=== PATIENT | female | born 1980 | race Caucasian/White ===

== ENCOUNTER 2021-12-06 18:03 | Emergency (ER) | payer OTHER, SELFPAY ==
[2021-12-06 18:04] VITALS: BP 134/79; PULSE 89; RESP 15; TEMP 36.3; O2SAT 99; BMI 40.9
== END 2021-12-06 19:01 | disposition left against medical advice (07) ==
LOC: ED 19:04
DX: R10.9 Unspecified abdominal pain (principal)

== ENCOUNTER 2023-09-12 09:14 | Emergency (ER) | payer MEDICAID, SELFPAY ==
[2023-09-12 09:15] VITALS: BP 142/95; PULSE 91; RESP 14; TEMP 36.1; O2SAT 98; BMI 42.3
--- NOTE | 2023-09-12 10:01 | EDS_ITS ---
HPI HPI - Female History of Present Illness Chief Complaint: Vag Bleeding Informant: patient Narrative Narrative: 43-year-old female with what feels like an extremely bad menstrual cycle, but she has been irregular for the last 1 or 2 years, her family doctor told her she was probably perimenopausal, this is the first cycle she has had in 3 months, which is how it has been for the last year or so, this 1 started the day before yesterday but now the bleeding is heavy along with clots, it is intermittent, she is having pelvic pains especially right before she gushes of blood and then sometimes feels like she is going to pass out specially when she stands up, she is been feeling fatigued. She denies esther lateralizing of the pain, radiates to her mid back. Pain is intermittent and not present at the moment. She took 800 mg of ibuprofen this morning prior to arrival and states that it did not help initially but now it seems to have helped some. PFSH PFSH Medical History Hernia of abdominal cavity Home Medications ?Medication ?Instructions ?Recorded ?Last Taken ?Type norethindrone acetate 5 mg tablet See Rx Instructions .Route 09/12/23 Unknown Rx .COMPLEX #8 tabs Allergy/AdvReac Type Severity Reaction Status Date / Time No Known Allergies Allergy Verified 09/12/23 09:15 Family History no significant family his Social History Smoking Status: Current every day smoker tobacco type: cigarettes ROS ROS ED Constitutional Constitutional ED: Reports fatigue; Denies chills or fever(s) Eyes Eyes: Denies change in vision or diplopia ENT ENT ED: Denies rhinorrhea or sore throat Cardiovascular Cardiovascular: Reports lightheadedness; Denies chest pain, palpitations or syncope Respiratory/Chest Respiratory/Chest: Denies cough or dyspnea Gastrointestinal Gastrointestinal: Reports abdominal pain; Denies diarrhea, nausea or vomiting Genitourinary Genitourinary ED: Reports vaginal bleeding; Denies dysuria or hematuria Musculoskeletal Musculoskeletal: Reports back pain; Denies neck pain Integumentary Denies abscess or rash Neurologic Neurologic: Denies headache(s), paresthesias or weakness Psychiatric Psychiatric: Denies suicidal thoughts EXAM Physical Exam Const Vital Signs: 09/12/23 09:15 09/12/23 11:15 Temperature 97 F L Temperature Source Temporal Pulse Rate 91 67 Respiratory Rate 14 16 Blood Pressure 142/95 H 128/74 H Blood Pressure Mean 110 92 Pulse Ox 98 100 Oxygen Delivery Method Room Air Room Air Positive well nourished and well developed General Appearance ED: well developed and NAD HEENT Reports moist mucous membranes normocephalic and atraumatic Eyes PERRL and EOMs intact bilaterally Neck full ROM and supple Resp normal respiratory effort and clear to auscultation bilaterally Cardio regular rate, regular rhythm and no murmurs GI non-tender and non-distended Auscultation: normoactive bowel sounds Palpation: soft Speculum Exam - Vagina: vaginal bleeding Back/Spine no CVA tenderness General Back: other FROM Extremity normal to inspection General Extremety ED: Negative for edema, pulses abnormal or tenderness General Extremity: Negative for edema or pulses abnormal Neuro oriented x3, CN's II-XII intact bilaterally and no sensory deficits noted Sensorium / Orientation: awake and alert Motor Exam: strength 5/5 throughout Skin no rashes or lesions noted and no wounds MDM MDM MDM Narrative Medical decision making narrative: Obtain labs to look at her blood counts which are excellent. is negative ruling out ectopic. She was given IV fluids and Zofran, she is not in a lot of pain right now so we held off and she did well without any further episodes or major episodes of hemorrhage/bleeding. I discussed with gynecology Dr. Virgen, under the circumstances she advises giving 3 days of Aygestin, decreasing the dose on the third day, and following up for long-term issue evaluation, the patient is comfortable with that plan. I do not think there is any indication for emergent ultrasound right now. Lab Data Attestation: I reviewed the patient's lab results. Labs: Laboratory Results - last 24 hr 09/12/23 10:05 WBC 6.8 RBC 4.43 Hgb 12.9 Hct 38.4 MCV 86.7 MCH 29.1 MCHC 33.6 RDW Std Deviation 42.4 RDW Coeff of Valerie 13.4 Plt Count 255 MPV 10.8 Immature Gran % (Auto) 0.300 Neut % (Auto) 56.2 Lymph % (Auto) 31.9 [place] % (Auto) 6.3 Eos % (Auto) 4.6 Baso % (Auto) 0.7 Absolute Neuts (auto) 3.8 Absolute Lymphs (auto) 2.17 Nucleated RBC % 0 Sodium 138 Potassium 4.2 Chloride 108 H Carbon Dioxide 26.0 Anion Gap 4 L BUN 12 Creatinine 1.00 Estim Creat Clear Calc 95.21 Est GFR (MDRD) Af Amer 78 Est GFR (MDRD) Non-Af 64 BUN/Creatinine Ratio 12.0 Glucose 94 Calcium 8.6 Serum , Qual NEGATIVE Management Discussion w/another healthcare provider: [employer] ([facility] gynecology) Discharge Plan Triage Chief Complaint: Vag Bleeding ED Provider: Renan Pruitt Dx/Rx/DC Orders Clinical Impression: Perimenopausal menorrhagia Instructions: ED Heavy Menstrual Bleeding Prescriptions: New norethindrone acetate 5 mg tablet See Rx Instructions .ROUTE .COMPLEX Qty: 8 0RF Rx Instructions: 1 tab po TID x 2days, then 1 tab po BID x 1day Primary Care Provider: Care Physician,No Primary Referrals: Karen Virgen MD [Med Staff - Active Staff] - As soon as possible Print Language: Macedonian Disposition Disposition: Home, Self Care
[2023-09-12 10:26] LABS: Absolute Lymphocyte Count 2.17 X10^3/uL (0.83-4.51); Absolute Neutrophil Count 3.8 X10^3/uL (2.0-7.7); Basophil# 0.05 X10^3/uL; Basophil% 0.7 % (0-1); Eosinophil# 0.31 X10^3/uL; Eosinophils% 4.6 % (0-5); Hematocrit 38.4 % (37-47); Hemoglobin 12.9 g/dL (12.0-15.0); Lymphocyte # 2.17 X10^3/ul (0.83-4.51); Lymphocyte % 31.9 % (19-41); Mean Corp Hgb Conc 33.6 g/dL (32-36); Mean Corpuscular Hgb 29.1 pg (27.0-32.0); Mean Corpuscular Volume 86.7 fL (81-99); Mean Platelet Vol. 10.8 fl (6.2-12.0); Monocyte# 0.43 X10^3/uL; Monocyte% 6.3 % (0-10); NRBC Flagged by Analyzer 0 % (0-5); Neutrophil # 3.83 X10^3/uL (2.7-7.7); Neutrophil % 56.2 % (47-70); Platelet Count 255 K/mm3 (150-450); RBC Distribution Width CV 13.4 % (11.6-14.6); RBC Distribution Width SD 42.4 fl (35.1-43.9); Red Blood Count 4.43 M/mm3 (4.2-5.4); White Blood Count 6.8 K/mm3 (4.4-11.0)
[2023-09-12] MEDS: 0.9% Normal Saline (1000mL) 1,000 ML 999 ML IV (10:36)
--- NOTE | 2023-09-12 10:39 | ED.RN ---
PT STATES I SOAKED THROUGH ANOTHER PAD.
[2023-09-12 10:41] LABS: Internal QC Validated? YES +Cl - CLEAR BKGD; Pregnancy, Serum, hCG Quali. NEGATIVE Negative
[2023-09-12 10:46] LABS: Anion Gap 4 (5-15); BUN 12 mg/dL (7-18); Calcium,Total 8.6 mg/dL (8.5-10.1); Chloride 108 mmol/L (98-107); EST Glomerular Filtration Rate 64 mL/min (>60); Est Glom Filt Rate - Afr Amer 78 mL/min (>60); Estimated Creatinine Clearance 95.21 ml/min; Glucose 94 mg/dL (74-106); Potassium 4.2 mmol/L (3.5-5.1); Sodium Level 138 mmol/L (136-145)
[2023-09-12 11:15] VITALS: BP 128/74; PULSE 67; RESP 16; O2SAT 100
[2023-09-12 12:01] VITALS: BP 119/86; PULSE 64; RESP 16; TEMP 36.9; O2SAT 96
== END 2023-09-12 12:05 | disposition home or self-care (01) ==
PROVIDERS: Emergency Provider Emergency Medicine; Visit Provider Emergency Medicine
DX: N92.4 Excessive bleeding in the premenopausal period (principal); F17.210 Nicotine dependence, cigarettes, uncomplicated; M54.9 Dorsalgia, unspecified; R10.9 Unspecified abdominal pain
CPT/HCPCS: 80048; 84703; 85025; 96360; 99283